=== PATIENT | female | born 1945 | race Caucasian/White ===

== ENCOUNTER → 2023-04-07 14:56 | Outpatient (REF) | payer MEDICARE, OTHER, SELFPAY | LOC: DHCBS MAIN 14:56 | PROVIDERS: ATTENDING PHYSICIAN Internal Medicine Cardiovascular Disease; FAMILY PHYSICIAN Family Medicine | DX: H53.131 Sudden visual loss, right eye (principal); Z86.73 Personal history of transient ischemic attack (TIA), and cerebral infarction without residual deficits | CPT/HCPCS: 93306 ==

== ENCOUNTER → 2023-06-09 09:15 | Outpatient (REF) | payer MEDICARE, OTHER, SELFPAY | LOC: RAD 09:15 | PROVIDERS: ATTENDING PHYSICIAN Internal Medicine Gastroenterology; FAMILY PHYSICIAN Family Medicine | DX: K76.0 Fatty (change of) liver, not elsewhere classified (principal) | CPT/HCPCS: 76700 ==

== ENCOUNTER → 2023-08-04 14:54 | Outpatient (REF) | payer MEDICARE, OTHER, SELFPAY | LOC: WDC 14:54 | PROVIDERS: ATTENDING PHYSICIAN Obstetrics & Gynecology Gynecology; FAMILY PHYSICIAN Family Medicine | DX: Z12.31 Encounter for screening mammogram for malignant neoplasm of breast (principal) | CPT/HCPCS: 77063; 77067 ==

== ENCOUNTER → 2023-08-13 06:35 | Day surgery (SDC) | payer MEDICARE, OTHER, SELFPAY | LOC: GI 06:35 | PROVIDERS: ATTENDING PHYSICIAN Internal Medicine Gastroenterology | DX: Z12.11 Encounter for screening for malignant neoplasm of colon (principal); D12.4 Benign neoplasm of descending colon; K63.5 Polyp of colon; K57.30 Diverticulosis of large intestine without perforation or abscess without bleeding; Q43.8 Other specified congenital malformations of intestine; K22.89 Other specified disease of esophagus; K21.9 Gastro-esophageal reflux disease without esophagitis; K44.9 Diaphragmatic hernia without obstruction or gangrene; R12 Heartburn; Z87.19 Personal history of other diseases of the digestive system | CPT/HCPCS: 45385; 45380; 43239; 88305 ==

== ENCOUNTER → 2023-11-02 09:50 | Outpatient (REF) | payer MEDICARE, OTHER, SELFPAY | LOC: RCS 09:50 | PROVIDERS: ATTENDING PHYSICIAN Internal Medicine Cardiovascular Disease; FAMILY PHYSICIAN Family Medicine | DX: R06.09 Other forms of dyspnea (principal) | CPT/HCPCS: 93306 ==

== ENCOUNTER → 2023-11-11 08:06 | Outpatient (REF) | payer MEDICARE, OTHER, SELFPAY | LOC: DHCBC/DCA 08:06 | PROVIDERS: ATTENDING PHYSICIAN Internal Medicine Cardiovascular Disease; FAMILY PHYSICIAN Family Medicine | DX: R06.09 Other forms of dyspnea (principal) | CPT/HCPCS: 78452; 93017; A9500; J2785 ==

== ENCOUNTER → 2024-05-13 13:45 | Outpatient (REF) | payer MEDICARE, OTHER, SELFPAY | LOC: RAD 13:45 | PROVIDERS: ATTENDING PHYSICIAN Physician Assistant; FAMILY PHYSICIAN Family Medicine | DX: K76.0 Fatty (change of) liver, not elsewhere classified (principal) | CPT/HCPCS: 76700 ==

== ENCOUNTER 2024-06-17 21:22 | Emergency (ER) | payer MEDICARE, OTHER, SELFPAY ==
[2024-06-17 21:23] VITALS: BP 184/84
--- NOTE | 2024-06-17 22:25 | EDRN ---
Pt tripped on area between grass and pavement in the rain and fell forward onto her face. Pt sustained abrasion to R forehead and small skin tear to bridge of nose. Pt complains of pain in b/l thumbs L>R. Pt has headache across forehead. Pt was
initially dizzy when she got up after falling but does not have dizziness now. Pt says she had no pain in lower extremities walking to and from car. Pt thinks she scraped her knees however this RN unable to evaluation pt's knees because her pants
will not pull up high enough. Pt declined removal of pants for evaluation of knees. Pt denies loc, neck/back pain, visual disturbance, n/v. Abrasion and skin tear cleaned with sterile NS. Pt declined ice for areas of injury.
[2024-06-17 23:29] VITALS: BP 142/73
--- NOTE | 2024-06-17 23:33 | ED.GENMED ---
History of Present Illness
General
Chief Complaint: Fall
Time Seen by Provider: 06/17/24 22:06
History of Present Illness
History of Present Illness:
78-year-old female presents the emergency department for evaluation of multiple injuries after a fall. Tripped and fell forward striking her face on the ground. No reported LOC. Denies any neck pain or back pain. No vision changes. Reporting a
4 out of 10 headache at this time. Also reporting bilateral thumb pain. No hip pain or leg pain. Does not take blood thinners
Past History
Past History
ED Past Medical History: CVA (TIA with mild residual) and HTN
Social History
Tobacco: Non-smoker
Alcohol: None
Drug: None
Personal:
Living: with family
Employment: Retired
Family History
Family History: Other (Not to be)
Review of Systems
Review of Systems
Allergies reviewed?: Yes
All Other Systems: ROS reviewed and negative except as documented in HPI and ROS
Phy Exam
Physical Exam
Physical Exam:
GEN: Well appearing, NAD, WDWN
Eyes: PERRLA, EOMs intact, no scleral icterus
HENT: Minor abrasion to the right forehead as well as a minor skin tear to the nasal bridge, no gross deformities, no midline cervical spine tenderness
Lungs: CTAB, no wheezes, rales, rhonchi, normal chest wall excursion
Cardiac: RRR, no M/R/G, no peripheral edema. Radial pulses 2+ bilat
Abdomen: S, NT, ND, NABS, no masses or hepatosplenomegaly
Neuro: AO x 3 cranial nerves II through XII grossly intact
MSK: No gross deformity or ecchymosis. Stable pelvis with no tenderness. No obvious deformities to bilateral hands or thumbs
Skin: No rashes, petechiae. Normal color, no pallor or jaundice.
Psych: Calm, cooperative, proper hygiene
Course
Orders/Labs/Results
Orders:
Orders
06/17/24 22:45
CT Head W/o Iv Contrast Urgent
Comment:
Reason For Exam: head injury
CR Finger(s)/thumb Min 2 Vw Rt Urgent
Comment:
Reason For Exam: R thumb injury
Vital Signs
Initial and Last Documented VS:
Initial Vital Signs
Temp Pulse Resp BP Pulse Ox
98.2 F 69 20 184/84 99
06/17/24 21:23 06/17/24 21:23 06/17/24 21:23 06/17/24 21:23 06/17/24 21:23
Last Documented Vital Signs
Temp Pulse Resp BP Pulse Ox
98.2 F 74 16 142/73 98
06/17/24 21:23 06/17/24 23:29 06/17/24 23:29 06/17/24 23:29 06/17/24 23:29
MDM/Problems Addressed
MDM/Problems Addressed:
CT of the head obtained due to advanced age with closed head injury showing no evidence for intracranial hemorrhage or fracture, right thumb x-rays independently interpreted by me are negative
*Critical Care Note
Total Time (30-74mins, 75-104mins- exclusive of procedures): Not Applicable
ED Attending Note
-
Portions of this chart may have been created with voice recognition software.� Occasional wrong word or��sound alike� substitutions may have occurred due to the inherent limitations of voice recognition software.
Discharge Plan
Departure
Patient Disposition: Home (Routine Discharge)
Date of Disposition: 06/17/24
Time of Disposition: 23:35
Patient with high blood pressure during this ER visit?: No
Discharge Problem:
Closed head injury, Abrasion of nose
Instructions: Wound Care (DC)
Prescriptions:
No Action
pantoprazole 40 MG tablet,delayed release (DR/EC)
40 mg PO QPM
pravastatin 20 MG tablet
20 mg PO QPM
metoprolol tartrate 25 MG tablet
0.5 tab PO BID
multivitamin [Daily Vitamin] 1 EACH tablet
1 ea PO DAILY
acetaminophen 325 MG tablet
325 mg PO Q4HPRN PRN (Reason: pain)
vitamin B complex 1 EACH tablet
1 ea PO DAILY
lisinopril 40 MG tablet
1 tab PO DAILY
cholecalciferol (vitamin D3) [Vitamin D3] 1,000 UNIT tablet
1,000 unit PO DAILY
calcium carbonate-vitamin D3 [Calcium 500 + D] 1 EACH tablet
1 ea PO DAILY
amlodipine 5 MG tablet
5 mg PO DAILY
Referrals:
Tequila Luong DO [Family Provider] -
Interventions
Interventions:
*Risk Screen - Suicide Last Done: 06/17/24 22:23
*General Assessment Last Done: 06/17/24 21:23
*Neglect/Abuse Screening Last Done: 06/17/24 22:23
*ED- Fall Risk Assessment Last Done: 06/17/24 22:23
*ED COVID-19 Vaccine History Last Done: 06/17/24 22:23
*Nursing Disposition Last Done: 06/17/24 23:42
ED-Musculoskeletal Assessment Last Done: 06/17/24 22:23
ED- Neurological Assessment Last Done: 06/17/24 22:23
ED-Skin Assessment Last Done: 06/17/24 22:23
Discharge Date and Time
Discharge Date/Time: 06/17/24 23:42
Print Language: [place]
== END 2024-06-17 23:42 | disposition home or self-care (01) ==
LOC: EMR 21:22
PROVIDERS: EMERGENCY PHYSICIAN Emergency Medicine; FAMILY PHYSICIAN Family Medicine
DX: S09.90XA Unspecified injury of head, initial encounter (principal); S00.31XA Abrasion of nose, initial encounter; W18.30XA Fall on same level, unspecified, initial encounter; I10 Essential (primary) hypertension; Z86.73 Personal history of transient ischemic attack (TIA), and cerebral infarction without residual deficits
CPT/HCPCS: 99284; 70450; 73140

== ENCOUNTER → 2024-08-09 12:47 | Outpatient (REF) | payer MEDICARE, OTHER, SELFPAY | LOC: WDC 12:47 | PROVIDERS: ATTENDING PHYSICIAN Obstetrics & Gynecology Gynecology; FAMILY PHYSICIAN Family Medicine | DX: M85.80 Other specified disorders of bone density and structure, unspecified site (principal); M85.89 Other specified disorders of bone density and structure, multiple sites; Z12.31 Encounter for screening mammogram for malignant neoplasm of breast | CPT/HCPCS: 77063; 77067; 77080 ==

== ENCOUNTER → 2025-02-14 12:19 | Outpatient (REF) | payer MEDICARE, OTHER, SELFPAY | LOC: RAD 12:19 | PROVIDERS: ATTENDING PHYSICIAN Internal Medicine Rheumatology; FAMILY PHYSICIAN Family Medicine | DX: M54.59 Other low back pain (principal); M81.0 Age-related osteoporosis without current pathological fracture | CPT/HCPCS: 72110 ==